=== PATIENT | female | born 2005 | race Two or more races ===

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

== ENCOUNTER 2025-03-06 00:53 | Emergency (ER) | payer SELFPAY ==
[2025-03-06 01:48] LABS: Hematocrit 33.7 % (37.0-47.0); Hemoglobin 12.1 g/dL (12.0-16.0); Mean Corp Hgb Conc. 35.9 g/dL (33.0-37.0); Mean Corpuscular Volume 87.8 fL (81.0-99.0); Nucleated Red Blood Cells % 0 %; Platelet Count 204 10^3/uL (130-400); Red Cell Dist. Width 12.7 % (11.5-14.5)
[2025-03-06 01:51] VITALS: BP 115/74
[2025-03-06 02:00] VITALS: BP 121/80
[2025-03-06 02:02] LABS: ALT (SGPT) 36 U/L (0-35); AST (SGOT) 28 U/L (14-36); Albumin 4.2 g/dl (3.5-5.0); Alkaline Phosphatase 85 U/L (38-126); Blood Urea Nitrogen 8 mg/dl (7-17); Calcium 9.0 mg/dl (8.4-10.2); Carbon Dioxide 20 mmol/L (22-30); Chloride 104 mmol/L (98-107); Glucose 99 mg/dl (70-99); Potassium 3.6 mmol/L (3.5-5.1); Sodium 134 mmol/L (135-145); Total Protein 7.2 g/dl (6.3-8.2); eGFR > 60.00
[2025-03-06 02:15] LABS: Troponin I < 0.012 ng/ml
[2025-03-06 02:28] LABS: D-Dimer 1.18 ug/mlFEU (0.00-0.50)
[2025-03-06 03:00] VITALS: BP 113/81
[2025-03-06 04:00] VITALS: BP 120/84
--- NOTE | 2025-03-06 04:06 | ED.GENMED ---
History of Present Illness
<Autumn Craft MD - Last Filed: 03/06/25 04:14>
General
Chief Complaint: Chest Pain
Source: patient
Time Seen by Provider: 03/06/25 03:55
History of Present Illness
History of Present Illness:
20-year-old female is currently 4 months presents emergency department complaints of discomfort in the mid to upper back that radiates around to the top of her chest area on the right and left side associated with mild dyspnea. The
symptoms started approximately 2 hours ago. The symptoms come and go, lasting 5 minutes or so at a time and then spontaneously resolving. The pain is not pleuritic in nature. She denies hemoptysis, leg swelling, recent trauma, recent
immobilization, estrogen use. She denies heavy lifting. She denies diaphoresis, nausea, vomiting, headache, lightheadedness/dizziness, or other complaints.
Translation Services
Preferred Language: English
[employer] service via: Video
Past History
<Autumn Craft MD - Last Filed: 03/06/25 04:14>
Past History
ED Past Medical History: None
ED Past Surgical History: None
Social History
Tobacco: Non-smoker
Alcohol: None
Drug: None
Personal: Partner
Phy Exam
<Autumn Craft MD - Last Filed: 03/06/25 04:14>
Physical Exam
Physical Exam:
GENERAL: Alert , in no apparent distress
EYE: pupils equal and reactive
NECK: Supple, no significant adenopathy.
ENT: o/p clr, mmm.
CARDIAC: Regular rate and rhythm .
LUNGS: Clear breath sounds bilaterally, no acute respiratory distress, no wheezes/rales/rhonchi
ABDOMEN: Soft, gravid, without focal tenderness, no r/g, no cvat
NEUROLOGICAL: Alert and oriented, no focal neuro deficits
SKIN: Warm and dry, skin intact.
MUSCULOSKELETAL: No edema, well perfused.
PSYCH: Normal and appropriate interaction.
Scores
<Abbi Hawkins DO - Last Filed: 03/06/25 05:42>
Heart Score for Chest Pain Patients
STEMI patient?: No
History: Slightly or Non-Suspicious
ECG: Normal
Age: </= 45 years
Risk Factors: No Risk Factors
Troponin: </= Normal Limit
Heart Score for Chest Pain Patients: 0
Heart Score Risk: 2.5% MACE over next 6 weeks
Course
<Autumn Craft MD - Last Filed: 03/06/25 04:14>
Orders/Labs/Results
Orders:
Orders
03/06/25 01:12
Electrocardiogram (*1) Urgent
Reason for Study: Other
Other Reason for Exam: Respiratory Distress
Cardiac Monitoring- Treatment ONCE
EKG- Treatment ONCE
IV Insert/Care/Rem.- Treatment PRN
O2 Therapy [RESP] Urgent
Titrate/Wean O2 to maintain O2 sat greater than (%): 93
Special Instructions: TO MAINTAIN CONTINUOUS O2 SATS >/= 93%
Pulse Ox/cont/shift [RESP] Urgent
Quantity: 1
Special Instructions: continuous pulse ox
03/06/25 01:30
Complete Blood Count/With Diff Urgent
Comprehensive Metabolic Panel Urgent
NT-proBNP Urgent
Troponin I Urgent
03/06/25 01:32
D-Dimer Urgent
Comment: chest pains 4 month
03/06/25 04:13
CT Chest PE Study Urgent
Comment:
Reason For Exam: cp, sob
03/06/25 05:04
Influenza A+B Rapid Molecular Urgent
JOCELYNE Source: Nasal Swab
Specimen Description:
Abnormal Lab Results
03/06/25 03/06/25
01:30 01:32
WBC 12.2 H 10^3/uL
(4.8-10.8)
RBC 3.84 L 10^6/uL
(4.20-5.40)
Hct 33.7 L %
(37.0-47.0)
MCH 31.5 H pg
(27.0-31.0)
Abs Immat Gran (auto) 0.2 H 10^3/uL
(0-0.05)
Absolute Neuts (auto) 8.6 H 10^3/uL
(1.4-6.5)
Absolute Monos (auto) 1.1 H 10^3/uL
(0.1-0.6)
Immature Gran % 1.8 H %
(0-0.5)
Lymphocytes % 15.8 L %
(20.5-51.1)
Monocytes % 9.4 H %
(1.7-9.3)
D-Dimer 1.18 H ug/mlFEU
(0.00-0.50)
Sodium 134 L mmol/L
(135-145)
Carbon Dioxide 20 L mmol/L
(22-30)
Creatinine 0.5 L mg/dL
(0.6-1.0)
ALT 36 H U/L
(0-35)
03/06/25 01:30
03/06/25 01:30
Vital Signs
Initial and Last Documented VS:
Initial Vital Signs
Pulse Ox
100
03/06/25 01:48
Last Documented Vital Signs
Pulse Resp BP Pulse Ox
99 17 120/84 100
03/06/25 05:15 03/06/25 05:15 03/06/25 04:00 03/06/25 05:15
<Abbi Hawkins, - Last Filed: 03/06/25 05:42>
Orders/Labs/Results
Orders:
Orders
03/06/25 01:12
Electrocardiogram (*1) Urgent
Reason for Study: Other
Other Reason for Exam: Respiratory Distress
Cardiac Monitoring- Treatment ONCE
EKG- Treatment ONCE
IV Insert/Care/Rem.- Treatment PRN
O2 Therapy [RESP] Urgent
Titrate/Wean O2 to maintain O2 sat greater than (%): 93
Special Instructions: TO MAINTAIN CONTINUOUS O2 SATS >/= 93%
Pulse Ox/cont/shift [RESP] Urgent
Quantity: 1
Special Instructions: continuous pulse ox
03/06/25 01:30
Complete Blood Count/With Diff Urgent
Comprehensive Metabolic Panel Urgent
NT-proBNP Urgent
Troponin I Urgent
03/06/25 01:32
D-Dimer Urgent
Comment: chest pains 4 month
03/06/25 04:13
CT Chest PE Study Urgent
Comment:
Reason For Exam: cp, sob
03/06/25 05:04
Influenza A+B Rapid Molecular Urgent
JOCELYNE Source: Nasal Swab
Specimen Description:
Abnormal Lab Results
03/06/25 03/06/25
01:30 01:32
WBC 12.2 H 10^3/uL
(4.8-10.8)
RBC 3.84 L 10^6/uL
(4.20-5.40)
Hct 33.7 L %
(37.0-47.0)
MCH 31.5 H pg
(27.0-31.0)
Abs Immat Gran (auto) 0.2 H 10^3/uL
(0-0.05)
Absolute Neuts (auto) 8.6 H 10^3/uL
(1.4-6.5)
Absolute Monos (auto) 1.1 H 10^3/uL
(0.1-0.6)
Immature Gran % 1.8 H %
(0-0.5)
Lymphocytes % 15.8 L %
(20.5-51.1)
Monocytes % 9.4 H %
(1.7-9.3)
D-Dimer 1.18 H ug/mlFEU
(0.00-0.50)
Sodium 134 L mmol/L
(135-145)
Carbon Dioxide 20 L mmol/L
(22-30)
Creatinine 0.5 L mg/dL
(0.6-1.0)
ALT 36 H U/L
(0-35)
03/06/25 01:30
03/06/25 01:30
Vital Signs
Initial and Last Documented VS:
Initial Vital Signs
Pulse Ox
100
03/06/25 01:48
Last Documented Vital Signs
Pulse Resp BP Pulse Ox
99 17 120/84 100
03/06/25 05:15 03/06/25 05:15 03/06/25 04:00 03/06/25 05:15
<Autumn Craft MD - Last Filed: 03/06/25 04:14>
*Pulse Oximetry
SaO2: 100
Oxygen Mode of Delivery: Room air
<Abbi Hawkins DO - Last Filed: 03/06/25 05:42>
*Radiology
Radiology exam reviewed: radiology read reviewed (CT of the chest/PE study negative for PE. Clear lung shabazz. No dissection.)
*Pulse Oximetry
Patient hypoxic: no
*Critical Care Note
Total Time (30-74mins, 75-104mins- exclusive of procedures): Not Applicable
<Autumn Craft MD - Last Filed: 03/06/25 04:14>
Update Note
Update Note:
Patient presents to the Emergency Department with __back chest pain and shortness of breath
Number and Complexity of Problems Addressed at the Encounter
� Chronic conditions affecting care:
� Acute Exacerbation and/or Progression of Chronic Illness:
� Differential Diagnosis includes: But not limited to influenza, PE, musculoskeletal pain, etc. etc.
Amount and/or Complexity of Data to be Reviewed and Analyzed
� I performed an independent evaluation of and my interpretation is:
EKG: Read by me, normal sinus rhythm, normal rate, normal axis, no acute ischemia
CT:
Xrays:
Laboratory Studies: Generally unremarkable, nonspecific mild leukocytosis which may be consistent with . Patient also has an elevated D-dimer which is difficult to interpret in the context of
Other:
� Review of other/old records reveals:
� Clinical information was obtained by an independent historian:
� Prescriptions/Medications Considered but not given:
� Further testing considered but not performed:
Risk of Complications and/or Morbidity or Mortality of Patient Management
� Social determinants of health affecting care:
� Discussion with other providers (PCP, Hospitalists, Consultants, etc):
� Escalation of care including admission/observation vs risk of discharge considered:
Diegolt;Abbi Hawkins DO - Last Filed: 03/06/25 05:42>
Update Note
Update Note:
Patient presents to the Emergency Department with __back chest pain and shortness of breath
Number and Complexity of Problems Addressed at the Encounter
� Chronic conditions affecting care:
� Acute Exacerbation and/or Progression of Chronic Illness:
� Differential Diagnosis includes: But not limited to influenza, PE, musculoskeletal pain, etc. etc.
Amount and/or Complexity of Data to be Reviewed and Analyzed
� I performed an independent evaluation of and my interpretation is:
EKG: Read by me, normal sinus rhythm, normal rate, normal axis, no acute ischemia
CT:
Xrays:
Laboratory Studies: Generally unremarkable, nonspecific mild leukocytosis which may be consistent with . Patient also has an elevated D-dimer which is difficult to interpret in the context of
Other:
� Review of other/old records reveals:
� Clinical information was obtained by an independent historian:
� Prescriptions/Medications Considered but not given:
� Further testing considered but not performed:
Risk of Complications and/or Morbidity or Mortality of Patient Management
� Social determinants of health affecting care:
� Discussion with other providers (PCP, Hospitalists, Consultants, etc):
� Escalation of care including admission/observation vs risk of discharge considered:
05:40
Patient [address] comfortably.
CT of the chest/PE study shows no PE. No aortic dissection or aneurysm. Clear lung shabazz. No pneumothorax nor pleural effusion. Mild cardiomegaly. Central airways are patent.
Patient has been advised of normal CT results
I suspect an element of acid reflux versus musculoskeletal chest pain. Very similar chest pain noted during ED visit August 2023, Negative CT of the chest/PE study at that time as well.
Recommend supportive measures, may take Tylenol versus antiacid.
Follow-up with [facility] for routine care.
ED Attending Note
<Autumn Craft MD - Last Filed: 03/06/25 04:14>
-
Portions of this chart may have been created with voice recognition software.� Occasional wrong word or��sound alike� substitutions may have occurred due to the inherent limitations of voice recognition software.
Discharge Plan
Departure
Patient Disposition: Home (Routine Discharge)
Date of Disposition: 03/06/25
Time of Disposition: 05:39
Patient with high blood pressure during this ER visit?: No
Condition: Good
Discharge Problem:
Acute nonspecific chest pain with low risk of coronary artery disease, Second trimester
Instructions: Chest Pain PCP Follow Up
Referrals:
UNKNOWN - PT DOES,NOT KNOW [Family Provider]
[facility] - Call in 1-3 days for appt
Interventions
Interventions:
*General Assessment Last Done: 03/06/25 02:00
*Neglect/Abuse Screening Last Done: 03/06/25 02:00
*ED COVID-19 Vaccine History Last Done: 03/06/25 02:00
*ED Influenza Vaccine History Last Done: 03/06/25 02:00
[facility] Fall Risk Assessment Tool Last Done: 03/06/25 00:53
*Risk Screen - Suicide (C-SSRS) Last Done: 03/06/25 02:00
ED- Cardiac Assessment Last Done: 03/06/25 02:01
Discharge Date and Time
Print Language: SERBIAN
== END 2025-03-06 06:03 | disposition home or self-care (01) ==
LOC: EMR 00:53
PROVIDERS: EMERGENCY PHYSICIAN Emergency Medicine
DX: O99.891 Other specified diseases and conditions complicating pregnancy (principal); R07.9 Chest pain, unspecified; Z3A.16 16 weeks gestation of pregnancy
CPT/HCPCS: 99284; 71275; 80053; 83880; 84484; 85025; 85379; 87502; 93005; Q9967